=== PATIENT | male | born 1995 ===

== ENCOUNTER 2021-07-18 21:54 | Emergency (ER) | payer SELFPAY ==
--- NOTE | 2021-07-19 00:48 | Emergency Department Report ---
ED General Adult HPI - General Chief complaint: Urogenital-Male Stated complaint: BLOOD IN URINE PAIN PUI?: No Time Seen by Provider: 07/19/21 00:45 Source: patient Mode of arrival: Ambulatory Limitations: No Limitations - History of Present Illness Initial comments: Patient is a 25-year-old male presents emergency room with complaints of dysuria and pain with urination and blood in his urine for 2 days. Patient states his symptoms are worsening. Patient states he is pain-free unless he is here needing. Patient is only his pain is when he urinates. Patient states it is a burning sensation. Patient denies penile discharge. Patient denies risk of STD. Patient states he had a urinary tract infection in the past. Patient states he was referred to urologist but never went. Patient denies recent travel. Patient denies recent international travel. Patient denies exposure to the novel coronavirus. Patient denies sick contacts. Patient denies fever and chills. Patient denies cough. Patient denies diarrhea. Patient denies coming in contact with anybody with symptoms of the novel coronavirus. -: Sudden Quality: burning Consistency: intermittent Improves with: rest Worsens with: other (Urination) Associated Symptoms: denies: confusion, chest pain, cough, diaphoresis, fever/chills, headaches, loss of appetite, malaise, nausea/vomiting, rash, seizure, shortness of breath, syncope, weakness Treatments Prior to Arrival: none - Related Data Previous Rx's Medication Instructions Recorded Last Taken Type Ciprofloxacin HCl 500 mg PO BID 14 Days #28 tablet 07/19/21 Unknown Rx Phenazopyridine [Pyridium] 200 mg PO TID #6 tab 07/19/21 Unknown Rx Tamsulosin [Flomax] 0.4 mg PO QDAY #14 cap 07/19/21 Unknown Rx ED Review of Systems ROS: Stated complaint: BLOOD IN URINE PAIN Other details as noted in HPI Constitutional: denies: chills, fever Eyes: denies: eye pain, eye discharge, vision change ENT: denies: ear pain, throat pain Respiratory: denies: cough, shortness of breath, wheezing Cardiovascular: denies: chest pain, palpitations Endocrine: no symptoms reported Gastrointestinal: denies: abdominal pain, nausea, diarrhea Genitourinary: as per HPI, dysuria. denies: urgency Musculoskeletal: denies: back pain, joint swelling, arthralgia Skin: denies: rash, lesions Neurological: denies: headache, weakness, paresthesias Psychiatric: denies: anxiety, depression Hematological/Lymphatic: denies: easy bleeding, easy bruising ED Past Medical Hx - Past Medical History Previous Medical History?: No - Surgical History Past Surgical History?: No - Family History Family history: no significant - Social History Smoking Status: Never Smoker Substance Use Type: None - Medications Home Medications: Home Medications Medication Instructions Recorded Confirmed Last Taken Type Ciprofloxacin HCl 500 mg PO BID 14 Days #28 tablet 07/19/21 Unknown Rx Phenazopyridine [Pyridium] 200 mg PO TID #6 tab 07/19/21 Unknown Rx Tamsulosin [Flomax] 0.4 mg PO QDAY #14 cap 07/19/21 Unknown Rx ED Physical Exam - General Limitations: No Limitations General appearance: alert, in no apparent distress - Head Head exam: Present: atraumatic, normocephalic - Eye Eye exam: Present: normal appearance - ENT ENT exam: Present: mucous membranes moist - Neck Neck exam: Present: normal inspection - Respiratory Respiratory exam: Present: normal lung sounds bilaterally. Absent: respiratory distress - Cardiovascular Cardiovascular Exam: Present: regular rate, normal rhythm. Absent: systolic murmur, diastolic murmur, rubs, gallop - GI/Abdominal GI/Abdominal exam: Present: soft, normal bowel sounds - Rectal Rectal exam: Present: deferred - Extremities Exam Extremities exam: Present: normal inspection - Back Exam Back exam: Present: normal inspection - Neurological Exam Neurological exam: Present: alert, oriented X3 - Psychiatric Psychiatric exam: Present: normal affect, normal mood - Skin Skin exam: Present: warm, dry, intact, normal color. Absent: rash ED Course Vital Signs 07/19/21 01:01 Temperature 98.2 F Pulse Rate 67 Respiratory 16 Rate Blood Pressure 138/96 [Left] O2 Sat by Pulse 20 L Oximetry - Reevaluation(s) Reevaluation #1: I discussed all results and clinical findings with patient. I discussed plan of care with patient. Patient agrees with plan of care. Patient is stable for discharge. Patient will be discharged home. Patient given discharge instructions. Patient voiced understanding of discharge instructions. 07/19/21 01:23 ED Medical Decision Making - Medical Decision Making Patient is a 25-year-old male who presents emergency room with complaints of dysuria and hematuria. Patient has a history of UTIs. Patient had a urine done and she is positive for a UTI. Patient will be treated with oral antibiotics. Patient does not require any further emergency medical service. Patient does not require inpatient service. Patient stable for discharge. Patient di scharged home. Patient will be referred to a urologist and back to his primary care. I discussed all results and clinical findings with patient. I discussed plan of care with patient. Patient agrees with plan of care. Patient is stable for discharge. Patient will be discharged home. Patient given discharge instructions. Patient voiced understanding of discharge instructions. - Differential Diagnosis UTI, hematuria, dysuria Critical care attestation.: If time is entered above; I have spent that time in minutes in the direct care of this critically ill patient, excluding procedure time. ED Disposition Clinical Impression: Dysuria UTI (urinary tract infection) Qualifiers: Urinary tract infection type: acute cystitis Hematuria presence: with hematuria Qualified Code(s): N30.01 - Acute cystitis with hematuria Disposition: HOME / SELF CARE / HOMELESS Is pt being admited?: No Does the pt Need Aspirin: No Condition: Stable Instructions: Antibiotic Medicine, Adult, [id number], Urinary Tract Infection, Adult, [id number] Additional Instructions: Patient to follow-up with primary care in 2 to 3 days. Patient to follow-up with urologist in 2 to 3 days. Patient to rest. Patient to increase water. Patient to take Tylenol or ibuprofen as needed for pain. Patient to take meds as directed. Patient to return to the ER if condition worsens, changes or new symptoms arise. Prescriptions: Ciprofloxacin HCl 500 mg PO BID 14 Days #28 tablet Tamsulosin [Flomax] 0.4 mg PO QDAY #14 cap Phenazopyridine [Pyridium] 200 mg PO TID #6 tab Referrals: DOTTIE WHITE MD [Staff Physician] - 2-3 Days CORNELIUS HOLCOMB MD [Staff Physician] - 2-3 Days Time of Disposition: 01:16
[2021-07-19 01:02] VITALS: BP 138/96
[2021-07-19 01:05] LABS: Bilirubin,Urine SM (Negative); Blood,Urine LG (Negative); Color,Urine Amber (Yellow); Mucus,Urine 3+ /HPF
[2021-07-19 01:06] LABS: Protein,Urine >500 mg/dL (Negative); RBC,Urine > 182.0 /HPF (0.0-6.0); WBC,Urine > 182.0 /HPF (0.0-6.0)
[2021-07-19 01:12] LABS: Ictotest,Urine Negative (Negative)
== END 2021-07-19 05:00 | disposition home or self-care (01) ==
LOC: ED 21:54
DX: N39.0 Urinary tract infection, site not specified (principal); R31.9 Hematuria, unspecified; Z79.899 Other long term (current) drug therapy
CPT/HCPCS: 81001; 99283